=== PATIENT | male | born 1960 | race Caucasian/White ===

== ENCOUNTER → 2016-07-11 09:42 | Outpatient (CLI) | payer MEDICAID ==
[2016-03-10 11:22] VITALS: BMI 23.7
[~2016-07-11 09:42] MED LIST: DEPAKOTE250 MG PO; ELAVIL25 MG PO; HYDROCODON-ACE1 EAC7 PO; IMITREX50 MG PO; MAXALT MLT10 MG/TAB PO; TOPAMAX25 MG PO; TYLENOL W/CODEI1 TAB
[2016-07-11 12:40] LABS: BASOPHILS 0.5 % (0.0-2.0); EOSINOPHILS 2.6 % (0-7); HEMATOCRIT 44.8 % (42.0-54.0); HEMOGLOBIN 15.5 g/dL (13.5-17.5); IMMATURE GRANULOCYTES 0.2 % (0-5); LYMPHOCYTES 26.5 % (15-50); MCH 31.5 pg (26.0-34.0); MCHC 34.6 g/dL (31.0-37.0); MCV 91.1 fL (80.0-100.0); MEAN PLATELET VOLUME 9.7 fL (7.4-10.4); MONOCYTES 7.7 % (2-11); NEUTROPHILS 62.5 % (40-80); PLATELET COUNT 222 10x3/uL (130-400); RBC 4.92 10x6/uL (4.20-6.10); RDW 12.1 % (11.5-14.5); WBC 5.9 10x3/uL (4.8-10.8)
[2016-07-11 13:04] LABS: ALKALINE PHOSPHATASE 93 U/L (46-116); ALT (SGPT) 48 U/L (10-68); CALC OSMOLALITY 284 mosm/kg (275-300); CARBON DIOXIDE 30.6 mmol/L (21.0-32.0); CHLORIDE - SERUM 106 mmol/L (98-107); GLUCOSE 93 mg/dL (74-106); POTASSIUM - SERUM 4.6 mmol/L (3.5-5.1); PROTEIN - SERUM 7.2 g/dL (6.4-8.2); SODIUM 142 mmol/L (136-145); T4 THYROXIN - FREE 1.09 ng/dL (0.76-1.46); T4 THYROXINE 8.7 ug/dL (4.7-13.3); THYROID STIMULATING HORMONE 2.38 uIU/mL (0.36-3.74); UREA NITROGEN 18 mg/dL (7-18); eGFR NON AFRICAN AMERICAN 83 mL/min (90-120)
[2016-07-11 13:43] LABS: ERYTHROCYTE SEDIMENTATION RATE 2 mm/hr (0-20)
[2016-07-12 06:13] LABS: RAPID PLASMA REAGIN Non Reactive (Non Reactive)
[2016-07-12 08:19] LABS: FOLATE (FOLIC ACID) - SERUM >20.0 ng/mL (>3.0)
--- NOTE | 2016-07-14 08:22 | EEG ---
PATIENT:KAROLINE DUVALL DATE OF SERVICE: 07/11/16 MEDICAL RECORD: [id number] DATE OF : 62 LOCATION: [facility] ADMISSION DATE: 07/11/16 REFERRING PHYSICIAN: INTERPRETING PHYSICIAN: MICHAELLE JEAN-BAPTISTE MD DATE OF SERVICE: 07/11/2016 Electroencephalographic Report Referred as an outpatient by myself. ELECTROENCEPHALOGRAM NUMBER: [id number]. DATE OF EXAMINATION: 07/11/2016 at 10:40 a.m. TECHNICAL DATA: This electroencephalographic recording consists of approximately 20 minutes of data collection utilizing the international 10/20 system of electrode placement and both referential and non-referential montages. Sixteen channels of electrocerebral recording are accompanied by a 17th channel dedicated to the electrocardiographic rhythm and 2 channels of electromyographic recording. Recording is performed entirely in the waking state utilizing activation by hyperventilation and photic stimulation. ELECTROENCEPHALOGRAPHIC DATA: The entirety of the recorded electrocerebral activity is performed in the waking state. Electromyographic artifact is prominent and rapid eye movements are seen throughout. The posterior dominant background consists of a well-developed, symmetric, rhythmic, waxing and waning alpha activity of 9-10 Hz, which is suppressed by eye opening. No abnormal nor focal slowing is identified. No epileptiform discharges are seen. Hyperventilation and photic stimulation induced no abnormal change in the recorded electrocerebral activity. INTERPRETATION: Normal (awake). This is a normal waking electroencephalographic recording. TRANSINT:[id number] Voice Confirmation ID: [id number] DOCUMENT ID: [id number] MICHAELLE JEAN-BAPTISTE MD at 0822 CC: [id number] DICTATION DATE: 07/13/16 0744 INORGANIC CHEMISTRY TEACHER: 07/13/16 0823 DEP CLI 07/11/16 [facility] [address] [id number]
== END | disposition home or self-care (01) ==
LOC: D.CN 09:42
PROVIDERS: Psychiatry & Neurology Neurology
DX: G43.711 Chronic migraine without aura, intractable, with status migrainosus (principal)

== ENCOUNTER → 2017-07-28 09:15 | Outpatient (CLI) | payer MEDICAID ==
[2016-03-10 11:22] VITALS: BMI 23.7
== END | disposition home or self-care (01) ==
LOC: D.NM 09:15
DX: R10.11 Right upper quadrant pain (principal)

== ENCOUNTER → 2017-09-28 07:56 | Outpatient (CLI) | payer MEDICAID ==
[2016-03-10 11:22] VITALS: BMI 23.7
== END | disposition home or self-care (01) ==
LOC: D.CT 07:56
DX: K63.89 Other specified diseases of intestine (principal); K82.9 Disease of gallbladder, unspecified; R10.11 Right upper quadrant pain